=== PATIENT | female | born 1940 | race Caucasian/White ===

== ENCOUNTER 2020-03-05 15:19 | Inpatient (IN) ==
[2020-03-05] MEDS ORDERED: Labetalol IV 5 MG/ML 20 ml VIAL IV PUSH PRN (17:08)
[2020-03-05 17:49] LABS: Hematocrit 39 % (35-47); Hemoglobin 13.4 g/dL (12.0-16.0); Mean Corpuscular HGB Conc 34 g/dL (31-36); Mean Corpuscular Hemoglobin 30 pg (27-31); Mean Corpuscular Volume 89 fL (80-97); Mean Platelet Volume 10.2 fL (7.4-10.4); Platelet Count 238 10^3/uL (150-450); Red Blood Count 4.39 10^6 /uL (3.70-4.87); Red Cell Distribution Width 12 % (10-15); White Blood Count 11.5 10^3/uL (3.5-10.8)
[2020-03-05 18:07] LABS: Anion Gap 8 mmol/L (2-11); BUN/Creatinine Ratio 20.2 (8-20); Blood Urea Nitrogen 17 mg/dL (6-24); CO2 Carbon Dioxide 25 mmol/L (22-32); Calcium 9.5 mg/dL (8.6-10.3); Chloride 106 mmol/L (101-111); Cholesterol 169 mg/dL; EGFR African American 79.1 (>60); EGFR Non-African American 65.4 (>60); Glucose 104 mg/dL (70-100); HDL Cholesterol 48.8 mg/dL; LDL Cholesterol 103 mg/dL; Magnesium 1.9 mg/dL (1.9-2.7); Potassium 3.5 mmol/L (3.5-5.0); Sodium 139 mmol/L (135-145); Triglycerides 84 mg/dL
[2020-03-05] MEDS: Enoxaparin 40 MG/0.4 ML SYR SUBCUT SCH (18:26)
[2020-03-05 18:36] LABS: TSH Ultra Thyroid Stim Horm 1.09 mcIU/mL (0.34-5.60)
[2020-03-05 18:47] LABS: Vitamin B12 176 pg/mL (180-914)
[2020-03-05 18:50] LABS: Vitamin D Total 25(OH) 43.5 ng/mL (20-50)
[2020-03-05] MEDS ORDERED: Cyanocobalamin INJ 1,000 MCG/ML VIAL 1 ML VIAL IM ONE (19:56)
[2020-03-05] MEDS ORDERED: hydrALAZINE 20 mg/ml 1 ML Vial IV IV SLOW PU PRN (19:58)
[2020-03-05 20:23] LABS: Troponin I 0.03 ng/mL (<0.03)
[2020-03-05 21:56] LABS: Troponin I 0.03 ng/mL (<0.03)
[2020-03-06] MEDS: Aspirin EC 81 mg TAB.EC (enteric coated) PO SCH (09:59)
[2020-03-06] MEDS ORDERED: Gadoteridol (CONTRAST) 279.3 MG/ML 10 ML IV ONE (15:16)
[2020-03-06 16:09] LABS: Urine Appearance Clear; Urine Bilirubin Negative (Negative); Urine Blood Negative (Negative); Urine Color Straw; Urine Glucose Negative (Negative); Urine Ketones Negative (Negative); Urine Nitrite Negative (Negative); Urine Protein Negative (Negative); Urine Specific Gravity 1.009 (1.010-1.030); Urine Urobilinogen Negative (Negative)
[2020-03-06 16:10] LABS: Urine Bacteria Absent (Absent); Urine Red Blood Cell Trace(0-2/hpf) (Absent); Urine Squamous Epithelial Cell Present (Absent); Urine White Blood Cell Trace(0-5/hpf) (Absent)
[2020-03-06] MEDS: Enoxaparin 40 MG/0.4 ML SYR SUBCUT SCH (17:56)
[2020-03-07 05:32] LABS: ABS Basophils 0.1 10^3/ul (0-0.2); ABS Eosinophils 0.1 10^3/ul (0-0.6); ABS Lymphocytes 2.1 10^3/ul (1.0-4.8); ABS Monocytes 0.9 10^3/ul (0-0.8); Eosinophil % 1.4 %; Hematocrit 43 % (35-47); Hemoglobin 14.9 g/dL (12.0-16.0); Lymphocyte % 22.7 %; Mean Corpuscular HGB Conc 35 g/dL (31-36); Mean Corpuscular Hemoglobin 31 pg (27-31); Mean Corpuscular Volume 89 fL (80-97); Mean Platelet Volume 10.1 fL (7.4-10.4); Platelet Count 256 10^3/uL (150-450); Red Blood Count 4.86 10^6 /uL (3.70-4.87); Red Cell Distribution Width 12 % (10-15); White Blood Count 9.1 10^3/uL (3.5-10.8)
[2020-03-07 05:55] LABS: BUN/Creatinine Ratio 25.6 (8-20); Calcium 9.5 mg/dL (8.6-10.3); EGFR Non-African American 63.7 (>60); Potassium 3.8 mmol/L (3.5-5.0)
[2020-03-07] MEDS: Aspirin EC 81 mg TAB.EC (enteric coated) PO SCH (08:19)
[2020-03-07] MEDS: Enoxaparin 40 MG/0.4 ML SYR SUBCUT SCH (20:37)
[2020-03-08] MEDS ORDERED: Aspirin EC 325 mg TAB.EC PO SCH (09:00)
[2020-03-08 15:21] VITALS: BP 169/69
== END 2020-03-08 16:30 | disposition home or self-care (01) | DRG 71 ==
LOC: ED 15:19 → MEDTELE 17:02
PROVIDERS: ADMIT Internal Medicine; ATTEND Internal Medicine